=== PATIENT | female | born 1950 | race Hispanic/Latino ===

== ENCOUNTER 2022-11-26 05:52 | Day surgery (SDC) | payer OTHER ==
[2022-11-24 12:39] LABS: BASOPHILS % (AUTO) 0.4 % (0.0-5.0); EOSINOPHILS % (AUTO) 1.6 % (0.0-8.0); HEMATOCRIT 38.3 % (36-48); LYMPHOCYTES % (AUTO) 18.5 % (21.0-51.0); MEAN CORPUSCULAR HEMOGLOBIN 28.6 pg (27.0-33.0); MEAN CORPUSCULAR HGB CONC 33.4 g/dL (32.0-36.0); MEAN CORPUSCULAR VOLUME 85.7 fL (79-99); MONOCYTES % (AUTO) 6.7 % (3.0-13.0); NEUTROPHILS % (AUTO) 72.6 % (40.0-77.0); PLATELET COUNT (AUTO) 121 K/uL (130-400); RED BLOOD CELL COUNT(AUTO) 4.47 MIL/uL (4.00-5.50); WHITE BLOOD COUNT (AUTO) 5.6 K/uL (4.8-10.8)
[2022-11-24 12:46] LABS: ALBUMIN 4.3 g/dL (3.5-5.0); CARBON DIOXIDE 33 mmol/L (21-32); CHLORIDE 100 mmol/L (101-111); CREATININE 0.9 mg/dL (0.5-1.5); GLOMERULAR FILTR. RATE CALC 65 mL/min (>60); GLUCOSE,RANDOM 111 mg/dL (70-105); POTASSIUM 4.9 mmol/L (3.5-5.1); SODIUM SERUM 139 mmol/L (136-145); UREA NITROGEN, BLOOD 15 mg/dL (7-18)
[2022-11-24 12:48] LABS: CRP QUANTITATIVE < 2.00 mg/L (0.00-9.0)
[2022-11-25 09:23] VITALS: BP 161/61
[~2022-11-26] VITALS: Ht 157.5 cm; Wt 61.1 kg
[2022-11-26] VITALS (11 sets, daily range): BP systolic 80–139; BP diastolic 43–76
[~2022-11-26 05:52] MED LIST: ALPR0.5T8 PO; BUPIVACAINE/PF 0.5% 30ML VIAL ONE; DAPA10TA PO; DULA0.75 SQ; LOSA1TAB37 PO
[2022-11-26] MEDS ORDERED: CEFAZOLIN SODIUM 2 GM VIAL IVPB SCH (06:00)
[2022-11-26] MEDS ORDERED: 0.9%NACL 1000ML 1,000 ML IV ONE (06:24)
[2022-11-26] MEDS ORDERED: IOHEXOL 180 MG/ML 20 ML VIAL ONE (07:00)
[2022-11-26] MEDS ORDERED: MIDAZOLAM HCL 1 MG/ML 2ML VIAL ONE (07:26)
[2022-11-26] MEDS ORDERED: LIDOCAINE PF 100MG/5ML (2%) SYRINGE 5ML ONE (07:27)
[2022-11-26] MEDS ORDERED: PROPOFOL 10 MG/ML 20ML VIAL IV ONE (07:27)
[2022-11-26] MEDS ORDERED: FENTANYL CITRATE PF 50 MCG/1 ML 2ML VIAL ONE (07:30)
== END 2022-11-26 08:55 | disposition home or self-care (01) ==
LOC: DAH 05:52
PROVIDERS: ATTEND Student in an Organized Health Care Education/Training Program
DX: M25.552 Pain in left hip (principal); M16.0 Bilateral primary osteoarthritis of hip; M25.551 Pain in right hip; G89.29 Other chronic pain; E11.9 Type 2 diabetes mellitus without complications; I10 Essential (primary) hypertension; Z20.822 Contact with and (suspected) exposure to COVID-19; Z79.899 Other long term (current) drug therapy
CPT/HCPCS: 82040; 80048; 85025; 84134; 86140; 87426; 36415; 93005; 20610; 82948 ×2; 77002; 73503; A4663; J3010; J7030; J2001; J2250; J2704; J1030; J3490; Q9965; J0690; A5120; A4215; A4223; A4222; A4221

== ENCOUNTER → 2023-03-02 | Outpatient (CLI) | payer OTHER ==
[~2023-03-02] MED LIST changes: -BUPIVACAINE/PF 0.5% 30ML VIAL ONE
== END | disposition home or self-care (01) ==
LOC: RAH 15:08
PROVIDERS: ATTEND Neurological Surgery
DX: M47.22 Other spondylosis with radiculopathy, cervical region (principal); M48.02 Spinal stenosis, cervical region
CPT/HCPCS: 72141

== ENCOUNTER 2023-03-25 14:00 | Observation (INO) | payer OTHER ==
[~2023-03-25] VITALS: Ht 157.5 cm; Wt 57.6 kg
[~2023-03-25 14:00] MED LIST changes: -ALPR0.5T8 PO
[2023-03-28 10:52] LABS: BASOPHILS # (AUTO) 0.04 K/uL (0.00-0.20); BASOPHILS % (AUTO) 0.6 % (0.0-5.0); EOSINOPHILS % (AUTO) 2.9 % (0.0-8.0); IMMATURE GRANULOCYTE ABSOLUTE 0.01 K/uL (0-1); LYMPHOCYTES # (AUTO) 1.1 K/uL (1.0-4.8); MEAN CORPUSCULAR HEMOGLOBIN 28.1 pg (27.0-33.0); MEAN CORPUSCULAR HGB CONC 32.3 g/dL (32.0-36.0); MEAN CORPUSCULAR VOLUME 86.9 fL (79-99); MONOCYTES # (AUTO) 0.5 K/uL (0.1-1.0); MONOCYTES % (AUTO) 6.6 % (3.0-13.0); NEUTROPHILS # (AUTO) 5.2 K/uL (1.8-7.7); NEUTROPHILS % (AUTO) 73.8 % (40.0-77.0); PLATELET COUNT (AUTO) 150 K/uL (130-400); RED BLOOD CELL COUNT(AUTO) 4.95 MIL/uL (4.00-5.50); RED CELL DISTRIBUTION WIDTH 12.6 % (11.0-15.5)
[2023-03-28 11:01] LABS: CREATININE 0.9 mg/dL (0.5-1.5); POTASSIUM 5.4 mmol/L (3.5-5.1)
[2023-03-28] MEDS ORDERED: LORA0.5T83 PO (12:01)
[2023-03-28] MEDS ORDERED: ZOLP5TAB8 PO (12:01)
[2023-03-28 12:02] VITALS: BP 118/66; PULSE 94; RESP 18
[2023-03-29] VITALS (34 sets, daily range): BP systolic 122–173; BP diastolic 55–88; PULSE 84–111; RESP 12–20; O2SAT 98–100
[2023-03-29] MEDS ORDERED: 0.9%NACL 1000ML 1,000 ML IV ONE (06:11)
[2023-03-29] MEDS: CEFAZOLIN SODIUM 2 GM VIAL ONE ×2 (06:36→08:00)
[2023-03-29 06:38] LABS: CREATININE 0.5 mg/dL (0.5-1.5)
[2023-03-29 06:44] LABS: POTASSIUM 2.8 mmol/L (3.5-5.1)
[2023-03-29] MEDS ORDERED: CEFAZOLIN SODIUM 1 GM VIAL ONE (06:56)
[2023-03-29] MEDS ORDERED: MORPHINE PF 100MG/10ML AMP IV ONE (06:57)
[2023-03-29] MEDS: BUPIVACAINE/EPI/PF 0.25% 30ML VIAL IJ SCH ×2 (07:00→08:00)
[2023-03-29] MEDS ORDERED: THROMBIN 20000 UNITS/VIAL POWDER TP ONE (07:00)
[2023-03-29 07:20] LABS: CREATININE 0.9 mg/dL (0.5-1.5); POTASSIUM 4.2 mmol/L (3.5-5.1)
[2023-03-29] MEDS ORDERED: PROPOFOL 1000 MG/100 ML 100 ML IV ONE (07:22)
[2023-03-29] MEDS ORDERED: DEXAMETHASONE SOD PHOSPHATE 4 MG/ML 1ML VIAL ONE (07:22)
[2023-03-29] MEDS ORDERED: PHENYLEPHRINE HCL 10 MG/ML 1ML VIAL IV ONE (07:23)
[2023-03-29] MEDS ORDERED: SUCCINYLCHOLINE CHLORIDE 20 MG/ML 10 ML VIAL ONE (07:29)
[2023-03-29] MEDS ORDERED: GLYCOPYRROLATE 1 MG/5 ML SYRINGE ONE (07:29)
[2023-03-29] MEDS ORDERED: ROCURONIUM 10MG/1ML SYR 10 MG/ML ML ONE (07:29)
[2023-03-29] MEDS ORDERED: PROPOFOL 10 MG/ML 20ML VIAL IV ONE (07:29)
[2023-03-29] MEDS ORDERED: FENTANYL CITRATE PF 50 MCG/1 ML 2ML VIAL ONE ×2 (07:29→12:02)
[2023-03-29] MEDS ORDERED: LIDOCAINE PF 100MG/5ML (2%) SYRINGE 5ML ONE (07:30)
[2023-03-29] MEDS ORDERED: MIDAZOLAM HCL 1 MG/ML 2ML VIAL ONE (07:34)
[2023-03-29] MEDS ORDERED: MANNITOL 20% 250ML BAG 250 ML IV ONE (07:42)
[2023-03-29] MEDS ORDERED: ONDANSETRON 4MG INJ ONE (08:38)
[2023-03-29] MEDS ORDERED: EPHEDRINE SULFATE 50 MG/ML AMPULE ONE (09:24)
[2023-03-29] MEDS ORDERED: CEFAZOLIN SODIUM 1 GM VIAL IVPB SCH (11:30)
[2023-03-29] MEDS ORDERED: DULAGLUTIDE 0.75 MG SQ SCH (11:30)
[2023-03-29] MEDS ORDERED: 0.9%NACL 10ML VIAL IVP PRN (11:30)
[2023-03-29] MEDS ORDERED: PROMETHAZINE HCL 25 MG/ML 1ML AMPULE IM PRN (11:30)
[2023-03-29] MEDS: ***HM***(Dapagliflozin Propanediol (Farxiga) 10 MG) PO SCH (11:35)
[2023-03-29] MEDS ORDERED: HYDROMORPHONE 1 MG INJ ONE (12:45)
[2023-03-29] MEDS ORDERED: ALPR0.5T8 PO (14:16)
[2023-03-29] MEDS: DEXAMETHASONE SOD PHOSPHATE 4 MG/ML 1ML VIAL IVP SCH ×3 (14:25→23:31)
[2023-03-29] MEDS ORDERED: PHARMACY COMMUNICATION MISC SCH (14:30)
[2023-03-29] MEDS ORDERED: CEFAZOLIN SODIUM 2 GM VIAL IVPB ONE (15:00)
[2023-03-29] MEDS ORDERED: LORAZEPAM 0.5 MG TABLET ONE (15:20)
[2023-03-29] MEDS: LACTATED RINGERS 1000ML 1,000 ML IV SCH (15:55)
[2023-03-29] MEDS: MORPHINE 2 MG SYG IVP PRN (18:16)
[2023-03-29] MEDS ORDERED: LORAZEPAM 0.5 MG TABLET PO SCH (21:00)
[2023-03-29] MEDS: INSULIN HUMULIN R 100 UNIT/ML 3ML SQ SCH (21:00)
[2023-03-29] MEDS: ALPRAZOLAM 0.5 MG TABLET PO SCH (21:39)
[2023-03-29] MEDS: HYDROCODONE/ACETAMINOPHEN 5/325 MG TAB PO PRN (21:40)
[2023-03-29] MEDS: ZOLPIDEM TARTRATE 5 MG TAB PO PRN (23:31)
[2023-03-30] VITALS (8 sets, daily range): BP systolic 118–138; BP diastolic 53–75; PULSE 73–101; RESP 17–24; O2SAT 94–95
[2023-03-30] MEDS: LACTATED RINGERS 1000ML 1,000 ML IV SCH (00:50)
[2023-03-30] MEDS: INSULIN HUMULIN R 100 UNIT/ML 3ML SQ SCH ×4 (05:45→20:59)
[2023-03-30] MEDS: HYDROCODONE/ACETAMINOPHEN 5/325 MG TAB PO PRN ×2 (06:35→10:15)
[2023-03-30] MEDS: DEXAMETHASONE SOD PHOSPHATE 4 MG/ML 1ML VIAL IVP SCH ×4 (06:35→23:15)
[2023-03-30 08:00] LABS: HEMATOCRIT 35.2 % (36-48); MEAN CORPUSCULAR HEMOGLOBIN 28.8 pg (27.0-33.0); MEAN CORPUSCULAR HGB CONC 34.1 g/dL (32.0-36.0); MEAN CORPUSCULAR VOLUME 84.4 fL (79-99); RED BLOOD CELL COUNT(AUTO) 4.17 MIL/uL (4.00-5.50); RED CELL DISTRIBUTION WIDTH 12.3 % (11.0-15.5); WHITE BLOOD COUNT (AUTO) 9.3 K/uL (4.8-10.8)
[2023-03-30] MEDS ORDERED: DEXTROSE 50%-WATER 50 ML DISP.SYRIN IV PRN (08:00)
[2023-03-30] MEDS ORDERED: MAGNESIUM 2GM PREMIX 50ML 50 ML IV PRN (08:00)
[2023-03-30] MEDS ORDERED: POTASSIUM CHLORIDE 10% ELIXIR 20 MEQ/15 ML UDCUP PO PRN (08:00)
[2023-03-30] MEDS ORDERED: POTASSIUM CHLORIDE 20MEQ/100ML 100 ML IV PRN (08:00)
[2023-03-30] MEDS: BUPIVACAINE/EPI/PF 0.25% 30ML VIAL IJ SCH (08:00)
[2023-03-30] MEDS ORDERED: KCL 20 MEQ ERTAB PO PRN (08:00)
[2023-03-30] MEDS ORDERED: GLUCAGON 1MG KIT 1 MG ML IM PRN (08:00)
[2023-03-30 08:07] LABS: CREATININE 0.9 mg/dL (0.5-1.5); POTASSIUM 4.7 mmol/L (3.5-5.1)
[2023-03-30 08:11] LABS: ALBUMIN 3.7 g/dL (3.5-5.0); BILIRUBIN,TOTAL 0.6 mg/dL (0.2-1.0); TOTAL PROTEIN, SERUM 6.7 g/dL (6.0-8.3)
[2023-03-30] MEDS: LOSARTAN/HYDROCHLOROTHIAZIDE 50-12.5MG TABLET PO SCH (09:00)
[2023-03-30] MEDS: ***HM***(Dapagliflozin Propanediol (Farxiga) 10 MG) PO SCH (09:00)
[2023-03-30] MEDS: ALPRAZOLAM 0.5 MG TABLET PO SCH ×2 (09:56→21:03)
[2023-03-30] MEDS: DOCUSATE SODIUM 100 MG CAP PO SCH ×2 (16:27→21:03)
[2023-03-30] MEDS: LACTULOSE 20 GM/30 ML UDCUP PO PRN (21:04)
[2023-03-30] MEDS: FAMOTIDINE 20MG TAB PO SCH (21:18)
[2023-03-30] MEDS: ZOLPIDEM TARTRATE 5 MG TAB PO PRN (22:35)
[2023-03-30] MEDS: MORPHINE 2 MG SYG IVP PRN (22:36)
[2023-03-31] MEDS: BUPIVACAINE/EPI/PF 0.25% 30ML VIAL IJ SCH ×2 (01:38→18:09)
[2023-03-31 04:05] VITALS: BP 140/77; PULSE 92; RESP 20
[2023-03-31 04:28] LABS: HEMATOCRIT 33.5 % (36-48); MEAN CORPUSCULAR HEMOGLOBIN 28.4 pg (27.0-33.0); MEAN CORPUSCULAR HGB CONC 33.1 g/dL (32.0-36.0); MEAN CORPUSCULAR VOLUME 85.7 fL (79-99); RED BLOOD CELL COUNT(AUTO) 3.91 MIL/uL (4.00-5.50); RED CELL DISTRIBUTION WIDTH 12.5 % (11.0-15.5); WHITE BLOOD COUNT (AUTO) 10.1 K/uL (4.8-10.8)
[2023-03-31] MEDS: DEXAMETHASONE SOD PHOSPHATE 4 MG/ML 1ML VIAL IVP SCH ×4 (04:28→22:48)
[2023-03-31 04:52] LABS: CREATININE 0.7 mg/dL (0.5-1.5); POTASSIUM 4.5 mmol/L (3.5-5.1)
[2023-03-31 04:53] LABS: HEMOGLOBIN A1C 6.2 % (4.0-6.0)
[2023-03-31] MEDS: INSULIN HUMULIN R 100 UNIT/ML 3ML SQ SCH ×4 (05:40→20:22)
[2023-03-31 07:30] VITALS: O2SAT 95
[2023-03-31 08:00] VITALS: BP 148/73; PULSE 114; RESP 18
[2023-03-31] MEDS: ALPRAZOLAM 0.5 MG TABLET PO SCH ×3 (08:16→20:12)
[2023-03-31] MEDS: DOCUSATE SODIUM 100 MG CAP PO SCH ×2 (08:16→20:12)
[2023-03-31] MEDS: LOSARTAN/HYDROCHLOROTHIAZIDE 50-12.5MG TABLET PO SCH (08:16)
[2023-03-31] MEDS: ***HM***(Dapagliflozin Propanediol (Farxiga) 10 MG) PO SCH (08:17)
[2023-03-31] MEDS: LACTULOSE 20 GM/30 ML UDCUP PO PRN (10:39)
[2023-03-31 12:00] VITALS: BP 156/83; PULSE 85; RESP 17
[2023-03-31 16:00] VITALS: BP 144/72; PULSE 78; RESP 19
[2023-03-31 20:00] VITALS: BP 130/71; PULSE 94; RESP 18
[2023-03-31] MEDS: HYDROCODONE/ACETAMINOPHEN 5/325 MG TAB PO PRN (20:12)
[2023-03-31] MEDS: FAMOTIDINE 20MG TAB PO SCH (20:12)
[2023-03-31] MEDS: ZOLPIDEM TARTRATE 5 MG TAB PO PRN (22:09)
[2023-04-01] VITALS: BP 106/60; PULSE 88; RESP 18
[2023-04-01 04:00] VITALS: BP 115/59; PULSE 85; RESP 18
[2023-04-01] MEDS: DEXAMETHASONE SOD PHOSPHATE 4 MG/ML 1ML VIAL IVP SCH (05:38)
[2023-04-01] MEDS: INSULIN HUMULIN R 100 UNIT/ML 3ML SQ SCH ×2 (06:25→11:30)
[2023-04-01 07:59] VITALS: BP 133/59; PULSE 83; RESP 20
[2023-04-01 08:00] VITALS: O2SAT 95
[2023-04-01] MEDS: ***HM***(Dapagliflozin Propanediol (Farxiga) 10 MG) PO SCH (09:00)
[2023-04-01] MEDS ORDERED: LINA72CA PO (09:25)
[2023-04-01] MEDS: LOSARTAN/HYDROCHLOROTHIAZIDE 50-12.5MG TABLET PO SCH (09:28)
[2023-04-01] MEDS: ALPRAZOLAM 0.5 MG TABLET PO SCH (09:28)
[2023-04-01] MEDS: DOCUSATE SODIUM 100 MG CAP PO SCH (09:29)
[2023-04-01] MEDS: HYDROCODONE/ACETAMINOPHEN 5/325 MG TAB PO PRN ×2 (09:29→16:53)
[2023-04-01] MEDS: LACTULOSE 20 GM/30 ML UDCUP PO PRN (09:29)
[2023-04-01 11:26] VITALS: BP 146/79; PULSE 87; RESP 19
[2023-04-01] MEDS ORDERED: LOSARTAN 50 MG TABLET PO SCH ×2 (16:30→21:00)
== END 2023-04-01 17:45 ==
LOC: DAHIP 03-29 05:55 → EDSTATUS 03-29 14:00 → 4BH 03-29 15:15 → 4AH 03-29 21:05
PROVIDERS: ADMIT Neurological Surgery; ATTEND Neurological Surgery
DX: M48.02 Spinal stenosis, cervical region (principal); Z20.822 Contact with and (suspected) exposure to COVID-19; E11.9 Type 2 diabetes mellitus without complications; E78.5 Hyperlipidemia, unspecified; F32.A Depression, unspecified; F41.9 Anxiety disorder, unspecified; G47.00 Insomnia, unspecified; I10 Essential (primary) hypertension; K59.00 Constipation, unspecified; G99.2 Myelopathy in diseases classified elsewhere; M19.90 Unspecified osteoarthritis, unspecified site; M25.78 Osteophyte, vertebrae; Z98.1 Arthrodesis status; Z79.899 Other long term (current) drug therapy; Z98.890 Other specified postprocedural states
CPT/HCPCS: 80048 ×4; 85025; 87426; 36415 ×4; 71045 ×2; 22551; 22552; 22853 ×3; 20930; 22845; 96376 ×4; 96365; 96366; 96375; 82948 ×8; 72020; 83735; 80053; 85027 ×2; 97161; 97039 ×3; 97116 ×3; 96372; 83036; A6260; G0378 ×73; G0379; A4510; A4663; J7030 ×2; A4344; J3010 ×2; J0690 ×3; J1170; J3490 ×8; J0330; J2270 ×2; J2001; J2250; J2704 ×2; J2405; J1100 ×13; J2371; A4649; C1776; A4215; A4223; A4554; A4335; A4222; A4221; A4600; J1815; J2274

== ENCOUNTER → 2023-04-18 | Outpatient (CLI) | payer OTHER ==
[~2023-04-18] MED LIST changes: +ALPR0.5T8 PO; +LINA72CA PO; +LORA0.5T83 PO; +ZOLP5TAB8 PO
== END | disposition home or self-care (01) ==
LOC: DAH 10:24
PROVIDERS: ATTEND Neurological Surgery
DX: Z01.818 Encounter for other preprocedural examination (principal); M47.812 Spondylosis without myelopathy or radiculopathy, cervical region; M43.22 Fusion of spine, cervical region
CPT/HCPCS: 72040

== ENCOUNTER → 2023-08-08 | Outpatient (CLI) | payer OTHER | END | disposition home or self-care (01) | LOC: RAH 08:18 | PROVIDERS: ATTEND Neurological Surgery | DX: M43.22 Fusion of spine, cervical region (principal) | CPT/HCPCS: 72040 ==

== ENCOUNTER → 2023-08-16 | Outpatient (CLI) | payer OTHER | END | disposition home or self-care (01) | LOC: RAH 13:13 | PROVIDERS: ATTEND Neurological Surgery | DX: S09.90XA Unspecified injury of head, initial encounter (principal); G31.9 Degenerative disease of nervous system, unspecified; R90.82 White matter disease, unspecified; X58.XXXA Exposure to other specified factors, initial encounter; Y93.89 Activity, other specified; Y92.89 Other specified places as the place of occurrence of the external cause; Y99.8 Other external cause status | CPT/HCPCS: 70450 ==

== ENCOUNTER → 2024-08-29 | Outpatient (CLI) | payer OTHER, MEDICARE ==
[~2024-08-29] MED LIST changes: +GADOTERATE MEGLUMINE 10 MMOL/20 ML VIAL IV ONE
--- NOTE | 2024-08-29 10:33 | HMCIMG ---
MR BRAIN AND ORBITS WWO HISTORY: Headaches and right eye pain COMPARISON: None TECHNIQUE: MRI of the brain was performed utilizing multiple pulse sequences in axial, coronal and sagittal planes. Patient was given 13 cc of Clariscan through intravenous route. Additional MRI images of the orbits were obtained. FINDINGS: The ventricles and extraventricular CSF spaces are dilated consistent with cerebral atrophy. Nonspecific white matter changes are seen. There is no midline shift, mass effect or herniation. No subacute hemorrhage is seen. No MR evidence of acute infarct is seen in the diffusion weighted images. Cerebellar tonsils are in normal position. No evidence of mucoperiosteal thickening is seen of the visualized paranasal sinuses. No MR evidence of mass lesion or abnormal enhancement is seen. No evidence of intraconal or extraconal mass is seen. The extraocular muscles are grossly intact. No displacement of the optic chiasm is seen. IMPRESSION: 1. No MR evidence of acute infarct is seen in the diffusion weighted images. No evidence of intraconal or extraconal mass is seen.
== END | disposition home or self-care (01) ==
LOC: RAH 08:05
PROVIDERS: ATTEND Internal Medicine
DX: R51.9 Headache, unspecified (principal); H57.11 Ocular pain, right eye
CPT/HCPCS: 70553; 70543; A9575

== ENCOUNTER → 2024-10-01 | Outpatient (CLI) | payer OTHER, MEDICAID ==
[~2024-10-01] MED LIST changes: -GADOTERATE MEGLUMINE 10 MMOL/20 ML VIAL IV ONE
[2024-10-01 13:33] LABS: ALBUMIN 3.9 g/dL (3.5-5.0); BILIRUBIN,TOTAL 0.7 mg/dL (0.2-1.0); CREATININE 0.9 mg/dL (0.5-1.0); POTASSIUM 4.5 mmol/L (3.5-5.1); TOTAL PROTEIN, SERUM 7.1 g/dL (6.0-8.3)
== END | disposition home or self-care (01) ==
LOC: LAB 12:10
PROVIDERS: ATTEND Internal Medicine
DX: I10 Essential (primary) hypertension (principal); E11.65 Type 2 diabetes mellitus with hyperglycemia
CPT/HCPCS: 36415; 80053

== ENCOUNTER → 2024-10-04 | Outpatient (CLI) | payer OTHER, MEDICAID ==
[~2024-10-04] MED LIST changes: +IOHEXOL 350 MG/ML 100ML INFUS..BTL IV ONE
--- NOTE | 2024-10-04 12:50 | HMCIMG ---
CT ABDOMEN/PELVIS W/CONTRAST REASON: LOWER ABD PAIN COMPARISON: None. TECHNIQUE: Images are obtained from lung bases to the symphysis pubis following IV contrast, 99 cc Omnipaque 350. FINDINGS: Lung bases are clear. There are no focal liver lesions. There are normal-appearing kidneys.. Spleen and pancreas appear unremarkable. The gallbladder appears normal as well. Bowel loops appear unremarkable. This includes normal appearance of the appendix There is no evidence of free fluid or intraperitoneal air. There are no focal fluid collections. Aorta and retroperitoneum appear normal. There is a recent there are calcified uterine fibroid. Pelvic soft tissues appear otherwise unremarkable. The anterior abdominal wall is intact. Osseous structures appear unremarkable. IMPRESSION: 1. 2 finding in the abdomen or pelvis. CT was performed with one or more following dose reduction techniques: automated exposure control, adjustment of the mA and kv according to patient's size, or use of a iterative reconstruction technique.
== END | disposition home or self-care (01) ==
LOC: RAH 11:06
PROVIDERS: ATTEND Internal Medicine
DX: D25.9 Leiomyoma of uterus, unspecified (principal); R10.30 Lower abdominal pain, unspecified
CPT/HCPCS: 74177; Q9967

== ENCOUNTER → 2025-02-01 | Outpatient (CLI) | payer OTHER, MEDICAID ==
[~2025-02-01] MED LIST changes: -IOHEXOL 350 MG/ML 100ML INFUS..BTL IV ONE; +IOHEXOL-350 50ML VIAL IV ONE
--- NOTE | 2025-02-01 16:11 | HMCIMG ---
CT CERVICAL SPINE W/CONTRAST HISTORY: Neck pain COMPARISON: None TECHNIQUE: Multiple sequential axial images of the cervical spine were obtained including post processing sagittal and coronal reconstruction images. Patient was not given contrast through intravenous route. FINDINGS: Of intensity of fixation plates and screws are seen traversing the C4, C5 and C6 with disc fusion. There is straightening of normal lordotic cervical curvature which may be related to muscle spasm or positioning. There is no loss of vertebral height. Evaluation for disc and cord pathology is limited with CT study. No evidence of fracture or dislocation is seen. IMPRESSION: 1. No fracture is seen. DJD of the cervical spine spondylosis. Postop changes. CT was performed with one or more following dose reduction techniques: automated exposure control, adjustment of the mA and kv according to patient's size, or use of a iterative reconstruction technique.
== END | disposition home or self-care (01) ==
LOC: RAH 12:47
PROVIDERS: ATTEND Internal Medicine
DX: M47.812 Spondylosis without myelopathy or radiculopathy, cervical region (principal); M43.22 Fusion of spine, cervical region; M54.2 Cervicalgia; Z98.890 Other specified postprocedural states
CPT/HCPCS: 72126; Q9967